=== PATIENT | female | born 1985 | race Caucasian/White ===

== ENCOUNTER 2018-05-04 12:46 | Outpatient (CLI) | payer BC | END 2018-05-04 12:47 | disposition home or self-care (01) | LOC: BICMAMMO 12:46 | PROVIDERS: ATTEND Obstetrics & Gynecology | DX: N63.23 Unspecified lump in the left breast, lower outer quadrant (principal); R92.1 Mammographic calcification found on diagnostic imaging of breast | CPT/HCPCS: 77066; G0279 ==

== ENCOUNTER 2020-05-03 00:53 | Inpatient (IN) | payer BC ==
[2020-05-03] MEDS ORDERED: hydrALAZINE 20 MG/ML VIAL SLOW IVP PRN ×2 (01:41→16:38)
[2020-05-03] MEDS ORDERED: Lidocaine 1% (PF) 30 ML VIAL SC PRN (01:41)
[2020-05-03] MEDS ORDERED: NS / Oxytocin 40 units/1000ml 1,000 ML IV PRN (01:41)
[2020-05-03] MEDS ORDERED: Ibuprofen 800 MG TAB PO PRN (01:41)
[2020-05-03] MEDS ORDERED: HYDROcodone/Acetaminophen 5/325 mg Tablet PO PRN ×4 (01:41→16:38)
[2020-05-03] MEDS ORDERED: Promethazine HCl 25 MG/ML VIAL IM PRN ×3 (01:41→16:38)
[2020-05-03] MEDS ORDERED: Ondansetron PF 4 MG/2 ML Vial IVP PRN ×3 (01:41→16:38)
[2020-05-03] MEDS ORDERED: Butorphanol Tartrate 1 MG/ML VIAL SLOW IVP PRN (01:41)
--- NOTE | 2020-05-03 01:52 | PDOC.LDHP ---
Labor and Delivery H&P HPI: Patient of Dr Graves I am at bedside now 34 yo with 2 previous term SVDs, here with CTXs, no LOF, states CTX every 5 min or sio. Was FT per her report, here for CTX. States GBS was pos. Review of Systems: completed and as per HPI Current gestational age (weeks): 35 (2) Dating criteria: last menstrual period Grav: 3 Para: 2 OB History Details: x2 Current complications: none Abnormal US findings: No Past Medical History: None Current medications: pre-kari vitamins Previous surgical history: none Allergies/Adverse Reactions: Allergies Allergy/AdvReac Type Severity Reaction Status Date / Time amoxicillin [Amoxicillin] Allergy Mild Hives Verified 01/03/20 07:57 Penicillins Allergy Mild RASH/HIVES Verified 01/03/20 07:57 Social history: none - Physical Exam Vital signs reviewed and normal: yes (114/69 80 afebrile) Heart: RRR Lungs: CTAB Abdomen: gravid Extremeties: no edema FHT: category 1 [place] contractions every: every - Vaginal Exam cm dilated: 2 (BOWI) Effacement: 75% Station: -2 - Assessment labor at 35 weeks, GBS pos and PCN allergy...OK for vanc - Plan Plan: admit to L&D, labor augmentation if indicated, GBS antibiotic prophylaxis , informed consent obtained, anesthesia consult for pain management, other ( Steroids at greater than 4cm (ALPS trial). Will notify NICU, and Dr Graves.)
[2020-05-03] MEDS ORDERED: Betamet Acet/Betamet Na Ph 30 MG/5 ML VIAL IM SCH (02:15)
[2020-05-03] MEDS ORDERED: Vancomycin 1 GM/200 ML BAG ONE (02:22)
[2020-05-03] MEDS: Lactated Ringer's 1,000 ML IV SCH ×2 (02:30→18:18)
[2020-05-03 02:38] LABS: Hemoglobin 11.3 g/dL (12.0-16.0); Mean Corpuscular HGB CONC 35.4 g/dL (32.0-36.0); Mean Corpuscular Hemoglobin 31.5 pg (27.0-31.0); Mean Corpuscular Volume 88.9 fL (78.0-98.0); Mean Platelet Volume 9.4 fL (7.4-10.4); Platelet Count 146 thou/uL (130-400); Red Blood Cell (RBC) Count 3.58 mill/uL (4.20-5.40); White Blood Cell (WBC) Count 7.7 thou/uL (4.8-10.8)
[2020-05-03] MEDS ORDERED: Vancomycin 1 GM in Premix Bag 1 BAG IVPB SCH (03:00)
[2020-05-03 03:17] LABS: HBSAg Index 0.14 S/CO (0-0.99); HIV (1/2) Antibody/Antigen Non-Reactive (NonReactive); HIV 1/2 INDEX 0.29 S/CO (<1.00); Hep B Surf Ag Non-Reactive S/CO (NonReactive)
--- NOTE | 2020-05-03 03:21 | PDOC.BPN ---
- Brief Progress Note Patient has itching but no rash with VANC. Duyen (RN) has found the GBS results...culture sensitive to CLINDA. Change to clinda and give benadryl for itching.
[2020-05-03] MEDS ORDERED: Clindamycin/D5W 900 mg/50 ml Premix Bag ONE (03:28)
[2020-05-03] MEDS ORDERED: diphenhydrAMINE 50 MG/ML VIAL ONE ×2 (03:28→12:12)
[2020-05-03] MEDS ORDERED: diphenhydrAMINE 50 MG in Sodium Chloride 0.9% 50 ML IVPB SCH (03:30)
[2020-05-03] MEDS: Clindamycin/D5W 900 MG in Premix Bag 1 BAG IVPB SCH ×2 (03:37→11:58)
[2020-05-03 04:08] VITALS: BMI 23.4
[2020-05-03 06:04] LABS: Syphilis Antibody Nonreactive (Nonreactive); Syphilis Antibody Index 0.03 S/CO (<1.00 Non-Reactive)
[2020-05-03] MEDS ORDERED: Bupivacaine/Epinephrine 0.25% 30 ML VIAL ONE (08:36)
[2020-05-03] MEDS ORDERED: Fentanyl 4 mcg/Bup 0.1% Cadd 100 ML ONE (09:30)
[2020-05-03] MEDS ORDERED: diphenhydrAMINE 50 MG/ML VIAL IVP PRN (10:19)
[2020-05-03] MEDS ORDERED: Naloxone HCl 0.4 mg/ml Vial IVP PRN ×2 (10:19)
[2020-05-03] MEDS ORDERED: Lactated Ringer's 500 ML IV PRN (10:19)
[2020-05-03] MEDS ORDERED: Acetaminophen 325 MG TAB PO PRN (10:19)
[2020-05-03] MEDS ORDERED: EPHEDRINE 25 MG/5 ML SYRINGE SLOW IVP PRN (10:19)
[2020-05-03] MEDS ORDERED: Fentanyl 4 mcg/Bupivacaine 0.1% Cassette 100 ML EPIDURAL SCH (10:30)
[2020-05-03] MEDS ORDERED: Communication Order-Pharmacy FS SCH (10:30)
[2020-05-03] MEDS ORDERED: NS w/ Oxytocin 10 units 500 ML ONE (13:30)
[2020-05-03] MEDS ORDERED: NS w/ Oxytocin 10 units 500 ML IV SCH (14:00)
[2020-05-03] MEDS ORDERED: NS / Oxytocin 40 units/1000ml 1,000 ML IV SCH (16:38)
[2020-05-03] MEDS ORDERED: Zolpidem Tartrate 5 MG TAB PO PRN (16:38)
[2020-05-03] MEDS ORDERED: Milk Of Magnesia 30 ML UDCUP PO PRN (16:38)
[2020-05-03] MEDS ORDERED: Preparation H Ointment 28 GM TUBE PR PRN (16:38)
[2020-05-03] MEDS ORDERED: Bisacodyl 10 MG SUPP PR PRN (16:38)
[2020-05-03] MEDS ORDERED: Lanolin Ointment 7 GM TUBE TOP PRN (16:38)
[2020-05-03] MEDS ORDERED: Benzocaine-Menthol 82.5 ML CAN TOP PRN (16:38)
[2020-05-03] MEDS ORDERED: diphenhydrAMINE 25 MG CAP PO PRN (16:38)
--- NOTE | 2020-05-03 17:15 | PDOC.OPDEL ---
OB Operative/Delivery Note Delivery Dr/Surgeon: [facility] for [facility] Pre-Delivery Diagnosis: active labor ( at 35 wk, gbs positive, received >4 hr of prophalaixis) Procedure/Post Delivery Dx: spontaneous vaginal delivery Weeks gestation: 35 Anesthesia: epidural - Findings A Sex: female - Additional Findings/Plan Placenta delivered: spontaneous Repaired Obstetrical Laceration: none Estimated blood loss: 30 cc qbl Compilations/Other Findings: wt and pending. Post delivery plan: routine recovery
[2020-05-03] MEDS: Ferrous Sulfate 325 MG TAB PO SCH (18:18)
[2020-05-03] MEDS: Ibuprofen 800 MG TAB PO SCH (21:32)
[2020-05-03] MEDS: Docusate Calcium (SURFAK) 240 MG CAP PO SCH (21:32)
[2020-05-04] MEDS: Ibuprofen 800 MG TAB PO SCH ×3 (05:09→22:29)
--- NOTE | 2020-05-04 06:11 | PDOC.PP ---
Post Progress Note Post Day #: PPD1 Subjective: Resting, no c/o. PO intake tolerated: yes Flatus: yes Ambulation: yes Vital Signs (12 hours) Temp Pulse Resp BP Pulse Ox 05/04/20 05:10 98.1 F 75 16 90/61 98 05/04/20 01:32 98.2 F 75 16 99/56 L 97 05/03/20 19:52 98.1 F 69 16 101/64 100 05/03/20 18:40 88 18 99/57 L Weight Weight 69.853 kg - Physical Examination General: NAD Respiratory: non-labored breathing Neurological: no gross focal deficits Psychiatric: normal affect Result Diagrams: 05/03/20 02:30 Additional Labs: Post Labs Blood Type O POSITIVE 05/03/20 02:30 Hep Bs Antigen Non-Reactive S/CO (NonReactive) 05/03/20 02:30 - Assessment/Plan Doing well s/p yesterday PM. Routine PP care.
[2020-05-04] MEDS ORDERED: Adacel (T-DAP) 0.5 ML SYRINGE IM ONE (09:00)
[2020-05-04] MEDS: Prenatal Vitamin 1 TAB PO SCH (09:37)
[2020-05-04] MEDS: Docusate Calcium (SURFAK) 240 MG CAP PO SCH ×2 (09:37→22:28)
[2020-05-04] MEDS: Ferrous Sulfate 325 MG TAB PO SCH ×2 (09:38→18:40)
[2020-05-05] MEDS: Ibuprofen 800 MG TAB PO SCH (05:20)
[2020-05-05] MEDS: Ferrous Sulfate 325 MG TAB PO SCH (09:12)
[2020-05-05] MEDS: Prenatal Vitamin 1 TAB PO SCH (09:13)
[2020-05-05] MEDS: Docusate Calcium (SURFAK) 240 MG CAP PO SCH (09:13)
[2020-05-05 10:03] VITALS: BP 95/65; TEMP 98.3
== END 2020-05-05 12:43 | disposition home or self-care (01) | DRG 807 ==
LOC: L&D/OP 00:53 → L&D 01:41 → 3SW 17:42
PROVIDERS: ADMIT Obstetrics & Gynecology; ATTEND Obstetrics & Gynecology
PROC: 10E0XZZ Delivery of Products of Conception, External Approach (ICD-10-PCS; principal; 2020-05-03)
DX: O60.13X0 Preterm labor second trimester with preterm delivery third trimester, not applicable or unspecified (principal); Z37.0 Single live birth; Z3A.35 35 weeks gestation of pregnancy; O99.824 Streptococcus B carrier state complicating childbirth; Z88.1 Allergy status to other antibiotic agents; Z88.0 Allergy status to penicillin
CPT/HCPCS: 36415; 51702; 85027; 86780; 86850; 86900; 86901; 87340; 87389; 99285; J0702; J1200; J2590; J3370; J3490

== ENCOUNTER 2020-06-13 14:49 | Outpatient (CLI) | payer BC ==
--- NOTE | 2020-06-13 15:20 | RAD ---
PA AND LATERAL VIEWS CHEST: HISTORY: Malignant melanoma. FINDINGS: The cardiomediastinum is normal. The lungs are expanded and clear. The bony thorax is normal. IMPRESSION: Normal exam. POS: OFF
== END 2020-06-13 14:50 | disposition home or self-care (01) ==
LOC: BICRAD 14:49
DX: C43.9 Malignant melanoma of skin, unspecified (principal)
CPT/HCPCS: 71046

== ENCOUNTER 2022-09-12 08:57 | Outpatient (CLI) | payer BC | END 2022-09-12 08:58 | disposition home or self-care (01) | LOC: BICULT 08:57 | PROVIDERS: ATTEND Surgery | DX: R10.13 Epigastric pain (principal) | CPT/HCPCS: 76705 ==

== ENCOUNTER 2023-02-05 09:46 | Outpatient (CLI) | payer BC ==
[2023-02-05 11:01] LABS: #Eosinphils 0.1 10x3/uL (0.0-0.5); #Monocytes 0.5 10x3/uL (0.0-1.1); #Neutrophils 2.9 10x3/uL (1.5-8.4); %Basophils 0.6 % (0.0-2.0); %Eosinophils 1.8 % (0.0-6.0); %Monocytes 10.3 % (0.0-10.0); %Neutrophils 59.1 % (40.0-75.0); Hemoglobin 12.8 g/dL (12.0-15.5); Mean Corpuscular Hemoglobin 28.7 pg (27.0-33.0); Mean Platelet Volume 11.5 fl (7.4-10.4); Platelet Count 199 10x3/uL (150-450); RBC Distribution Width 12.4 % (11.5-14.5); Red Blood Cell (RBC) Count 4.46 10x6/uL (3.90-5.03)
[2023-02-05 11:18] LABS: BHCG - Serum Negative (NEGATIVE); Pregs Control Background? CLEAR/WHITE (CLR/WHITE); Pregs Control Bar Appear? YES (CONTROL BAR)
== END 2023-02-05 09:47 | disposition home or self-care (01) ==
LOC: LABBT 09:46
PROVIDERS: ATTEND Surgery
DX: Z01.812 Encounter for preprocedural laboratory examination (principal); K42.9 Umbilical hernia without obstruction or gangrene
CPT/HCPCS: 84703; 85025

== ENCOUNTER 2023-02-09 09:37 | Day surgery (SDC) | payer BC ==
[2023-02-05 10:30] VITALS: BMI 21.1
[2023-02-09] MEDS ORDERED: Bupivacaine/Epinephrine 0.25% 30 ML VIAL ONE (10:14)
[2023-02-09] MEDS ORDERED: Lidocaine 2% PF 5 ML VIAL ONE (10:14)
[2023-02-09] MEDS ORDERED: Midazolam HCl 2 mg/2 ml Vial ONE ×2 (10:20→10:30)
[2023-02-09] MEDS ORDERED: fentaNYL PF 100 MCG/2 ML SYRINGE ONE (10:21)
[2023-02-09] MEDS ORDERED: Levofloxacin 500 mg/D5W 100 ml Premix Bag ONE (10:30)
[2023-02-09] MEDS ORDERED: Lidocaine 1% PF 5 ML VIAL ONE (10:44)
[2023-02-09] MEDS ORDERED: PROPOFOL 200 MG/20 ML VIAL ONE (10:44)
[2023-02-09] MEDS ORDERED: Dexamethasone 20 MG/5 ML VIAL ONE (10:44)
[2023-02-09] MEDS ORDERED: Ondansetron PF 4 MG/2 ML Vial ONE (10:44)
== END 2023-02-09 13:45 | disposition home or self-care (01) ==
LOC: SDC 09:37
PROVIDERS: ATTEND Surgery
PROC: 0WQF0ZZ Repair Abdominal Wall, Open Approach (ICD-10-PCS; principal; 2023-02-09)
DX: K42.9 Umbilical hernia without obstruction or gangrene (principal); Z88.0 Allergy status to penicillin; Z88.1 Allergy status to other antibiotic agents
CPT/HCPCS: J1100; J1956; J2001; J2250; J2405; J2704